=== PATIENT | female | born 1945 | race Caucasian/White ===

== ENCOUNTER → 2020-04-16 | Outpatient (CLI) | payer OTHER, BC ==
[~2020-04-16] MED LIST: ALPRAZOLAM0.25 MG ORAL; AMLODIPINE BES2.5 MG ORAL; ARIMIDEX1 MG ORAL; ATORVASTATIN CA20 MG ORAL; CELEBREX200 MG ORAL; CIPRO250 MG ORAL; ECOTRIN81 MG PO; ENOXAPARIN40 MG/0.4 SUBQ; MIRALAX17 GM ORAL; MIRTAZAPINE30 MG ORAL; MULTIVITAMINS1 EAC8 ORAL; NORVASC2.5 MG ORAL; QUETIAPINE FUMA50 MG ORAL; TRAZODONE HCL100 MG ORAL; TRAZODONE HCL150 MG ORAL; TRAZODONE HCL50 MG ORAL; ZOLOFT100 MG ORAL
== END | disposition home or self-care (01) ==
LOC: ECT 06:13
DX: F33.3 Major depressive disorder, recurrent, severe with psychotic symptoms (principal); F03.90 Unspecified dementia, unspecified severity, without behavioral disturbance, psychotic disturbance, mood disturbance, and anxiety; R73.03 Prediabetes; E78.5 Hyperlipidemia, unspecified; M81.0 Age-related osteoporosis without current pathological fracture; Z85.3 Personal history of malignant neoplasm of breast; Z90.10 Acquired absence of unspecified breast and nipple; I11.9 Hypertensive heart disease without heart failure; I25.10 Atherosclerotic heart disease of native coronary artery without angina pectoris; Z79.899 Other long term (current) drug therapy; Z88.2 Allergy status to sulfonamides; F41.9 Anxiety disorder, unspecified

== ENCOUNTER → 2020-04-23 | Outpatient (RCR) | payer MEDICARE, BC ==
[~2020-04-23] VITALS: Ht 160 cm; Wt 70.8 kg
[2020-04-23] VITALS (8 sets, daily range): BP systolic 131–181; BP diastolic 65–85
[~2020-04-23] MED LIST changes: +Atropine Sulfate 0.4mg/ml inj IVP PRN; +Methohexita Syr 100mg/10ml IVP ONE; +NS 500ML ONE; +Succinylcholine 20mg/ml 10ml vial ONE
== END | disposition home or self-care (01) ==
LOC: ECT 05:30
DX: F33.3 Major depressive disorder, recurrent, severe with psychotic symptoms (principal); F03.90 Unspecified dementia, unspecified severity, without behavioral disturbance, psychotic disturbance, mood disturbance, and anxiety; E78.5 Hyperlipidemia, unspecified; M81.0 Age-related osteoporosis without current pathological fracture; I12.9 Hypertensive chronic kidney disease with stage 1 through stage 4 chronic kidney disease, or unspecified chronic kidney disease; E11.22 Type 2 diabetes mellitus with diabetic chronic kidney disease; N18.30 Chronic kidney disease, stage 3 unspecified; Z85.3 Personal history of malignant neoplasm of breast; Z90.10 Acquired absence of unspecified breast and nipple; E03.9 Hypothyroidism, unspecified; D63.1 Anemia in chronic kidney disease; I45.81 Long QT syndrome
CPT/HCPCS: 90870; J0330; J7040

== ENCOUNTER 2020-04-25 10:15 | Outpatient (RCR) | payer MEDICARE, BC ==
[2020-04-25] VITALS (7 sets, daily range): BP systolic 134–184; BP diastolic 66–83
[~2020-04-25] VITALS: Ht 160 cm; Wt 70.8 kg
[~2020-04-25 10:15] MED LIST changes: -Atropine Sulfate 0.4mg/ml inj IVP PRN; -Methohexita Syr 100mg/10ml IVP ONE; -NS 500ML ONE; -Succinylcholine 20mg/ml 10ml vial ONE
[2020-04-25] MEDS ORDERED: Succinylcholine 20mg/ml 10ml vial ONE ×2 (10:16)
[2020-04-25] MEDS ORDERED: Methohexita Syr 100mg/10ml IVP ONE ×2 (10:16)
[2020-04-25] MEDS ORDERED: NS 500ML ONE ×2 (10:16)
[2020-04-27] VITALS (7 sets, daily range): BP systolic 140–169; BP diastolic 71–97
[2020-04-27] MEDS ORDERED: Methohexita Syr 100mg/10ml IVP ONE (06:00)
[2020-04-27] MEDS ORDERED: NS 500ML ONE (06:00)
[2020-04-27] MEDS ORDERED: Succinylcholine 20mg/ml 10ml vial ONE (06:00)
[2020-04-30] VITALS (7 sets, daily range): BP systolic 144–177; BP diastolic 50–88
[2020-04-30] MEDS ORDERED: Methohexita Syr 100mg/10ml IVP ONE (09:00)
[2020-04-30] MEDS ORDERED: NS 500ML ONE (09:00)
[2020-04-30] MEDS ORDERED: Succinylcholine 20mg/ml 10ml vial ONE (09:00)
== END 2020-05-24 | disposition home or self-care (01) ==
LOC: ECT 10:15
DX: F33.3 Major depressive disorder, recurrent, severe with psychotic symptoms (principal)
CPT/HCPCS: 90870; J0330; J7040